=== PATIENT | male | born 1995 | race Caucasian/White ===

== ENCOUNTER → 2017-12-23 | Emergency (ER) | payer MEDICAID ==
[~2017-12-23] VITALS: Ht 167.6 cm; Wt 107.0 kg
[~2017-12-23] MED LIST: AMOX-101 PO; CefTRIAXone 2gm/D5W 50ml 50 ML IV ONE; ONDA4TAB12 PO; dexamethasone sod phosphate 10mg/ml inj IV STA; ketorolac trometh. 30mg/ml inj. IV ONE; metoclopramide 5 mg/ml inj IV ONE; morphine 4 MG/ML inj SYRINge IV ONE; normal saline 1000ML IV soln IVB ONE
[2017-12-23 13:36] LABS: BASOPHILS % (AUTO) 0.3 % (0-1); EOSINOPHILS % (AUTO) 0 % (0-6); HEMATOCRIT 45.3 % (42.0-52.0); HEMOGLOBIN 15.3 g/dl (14.0-17.9); LYMPHOCYTES # (AUTO) 0.8 X10'3 (1.1-4.8); LYMPHOCYTES % (AUTO) 4.9 % (21-51); MEAN CORPUSCULAR HEMOGLOBIN 30.3 PG (27.0-31.0); MEAN CORPUSCULAR HGB CONC 33.9 % (33.0-36.5); MEAN CORPUSCULAR VOLUME 89.6 FL (78-98); MEAN PLATELET VOLUME 9.2 FL (7.4-10.4); MONOCYTES # (AUTO) 1.3 X10'3 (0-0.9); MONOCYTES % (AUTO) 8.6 % (2-12); NEUTROPHILS # (AUTO) 13.3 X10'3 (1.8-7.7); NEUTROPHILS % (AUTO) 86.2 % (42-75); PLATELET COUNT 164 X10'3 (140-440); RED BLOOD COUNT 5.06 X10'6 (4.70-6.10); RED CELL DISTRIBUTION WIDTH 13.6 % (11.5-14.5); WHITE BLOOD COUNT 15.4 X10'3 (4.5-11.0)
[2017-12-23 13:47] LABS: MONOTEST NEGATIVE (Neg)
[2017-12-23 14:04] VITALS: BP 132/82
== END | disposition home or self-care (01) ==
LOC: ER 11:12
DX: G43.909 Migraine, unspecified, not intractable, without status migrainosus (principal); J02.0 Streptococcal pharyngitis; J45.909 Unspecified asthma, uncomplicated; Z98.890 Other specified postprocedural states; Z88.8 Allergy status to other drugs, medicaments and biological substances; Z79.899 Other long term (current) drug therapy
CPT/HCPCS: 36415; 85025; 86308; 96361; 96365; 96375; 99284; J0696; J1100; J1885; J2270; J2765; J7030

== ENCOUNTER 2019-04-05 15:40 | Emergency (ER) | payer MEDICAID, OTHER ==
[~2019-04-05] VITALS: Ht 167.6 cm; Wt 104.4 kg
[~2019-04-05 15:40] MED LIST changes: -AMOX-101 PO; -CefTRIAXone 2gm/D5W 50ml 50 ML IV ONE; -dexamethasone sod phosphate 10mg/ml inj IV STA; -ketorolac trometh. 30mg/ml inj. IV ONE; -metoclopramide 5 mg/ml inj IV ONE; -morphine 4 MG/ML inj SYRINge IV ONE; -normal saline 1000ML IV soln IVB ONE
[2019-04-05 15:44] VITALS: BP 138/90
[2019-04-05] MEDS ORDERED: CIPR10DR RIGHT EAR (16:35)
[2019-04-05] MEDS ORDERED: HYDROcodone/acetaminophen 5mg/325mg tablet PO ONE (16:35)
[2019-04-05] MEDS ORDERED: IBUP-1985 PO (16:35)
== END 2019-04-05 16:59 | disposition home or self-care (01) ==
LOC: ER 15:41
DX: H92.01 Otalgia, right ear (principal); L53.8 Other specified erythematous conditions; G43.909 Migraine, unspecified, not intractable, without status migrainosus; J45.909 Unspecified asthma, uncomplicated; Z98.890 Other specified postprocedural states; Z88.6 Allergy status to analgesic agent
CPT/HCPCS: 99283